=== PATIENT | male | born 1945 | race Caucasian/White ===

== ENCOUNTER 2017-04-25 08:00 | Day surgery (SDC) | payer MEDICARE, BC ==
[~2017-04-25 08:00] MED LIST: Bupivacaine 0.5% 50 ML MDV ONE; Lidocaine 1% with EPINEPHrine 1:100,000 50 ML MDV ONE; Midazolam 1 MG/ML 2 ML SDV ONE; Propofol 200 MG/20 ML SDV ONE; fentaNYL 100 MCG/2 ML SDV ONE
[2017-04-25] MEDS ORDERED: Dextrose 5%-Lactated Ringers 1,000 ML IV SCH (08:30)
[2017-04-25] MEDS ORDERED: ceFAZolin 2 GM in Sodium Chloride 0.9% 50 ML IV ONE (09:15)
[2017-04-25] MEDS ORDERED: Propofol 200 MG/20 ML SDV ONE (09:59)
--- NOTE | 2017-05-01 08:04 | OR ---
DATE OF PROCEDURE: 04/25/2017 PREOPERATIVE DIAGNOSIS: Indications for central venous access. POSTOPERATIVE DIAGNOSIS: Indications for central venous access. OPERATIVE PROCEDURE: Placement of Bard port via left subclavian vein approach ([id number]). ANESTHESIA: Local plus IV sedation. CANINE DEPUTY: Marjorie Rogers MS-3. INDICATION FOR PROCEDURE: This is a 71-year-old with stage IV marginal zone lymphoma, who is to be undergoing chemotherapy. To facilitate venous access, the patient is to undergo a Bard port placement. Potential risks including bleeding, infection, problems with the port becoming occluded, complications such as pneumothorax or vascular injury during the placement were reviewed, and the patient wishes to proceed. DETAILS OF PROCEDURE: The patient was taken to the operating room and placed in the supine position. After IV sedation was administered, the upper chest and neck areas were prepped and draped. The left subclavian area was then anesthetized with 1% lidocaine and left subclavian vein cannulated and the guidewire passed from there into the superior vena cava. Some additional local was injected and a transverse infraclavicular incision was made and carried down through the skin and subcutaneous tissue and through the pectoralis major fascia. A pocket behind the fascia was then constructed bluntly. A Bard port at that point had been assembled and flushed with heparinized saline. Port was placed in the pocket, and the catheter cut such that the tip would lie in the area of upper aspect of the right atrium. After this was measured and cut, the introducer and peel-away catheter were placed across the wire and the Bard port catheter thus deployed with the tip, once again, being in the upper right atrium. At that point, no further problems were noted. The incision was closed with 2 layers of 3-0 Vicryl stitch deep and a 4-0 Vicryl subcuticular stitch. The port was then accessed and teodoro blood back nicely and then was flushed once again with heparinized saline. Dressing was applied. The patient was taken to the recovery room in a satisfactory condition. There were no evident complications. Gerardo Rich MD /[id number]
== END 2017-04-25 11:42 | disposition home or self-care (01) ==
LOC: MERGE 08:00 → JP.SDS 08:00
PROVIDERS: ATTEND Surgery
DX: Z45.2 Encounter for adjustment and management of vascular access device (principal); Z88.8 Allergy status to other drugs, medicaments and biological substances
CPT/HCPCS: 36561; C1788; J0690; J1642; J2250; J2704; J3010; J7042; J7050

== ENCOUNTER 2017-06-26 07:45 | Day surgery (SDC) | payer MEDICARE, BC ==
[~2017-06-26 07:45] MED LIST changes: -Bupivacaine 0.5% 50 ML MDV ONE; +Bupivacaine 0.5%/EPINEPHrine 1:200,000 50 ML MDV ONE; -Lidocaine 1% with EPINEPHrine 1:100,000 50 ML MDV ONE; -Midazolam 1 MG/ML 2 ML SDV ONE; -Propofol 200 MG/20 ML SDV ONE; -fentaNYL 100 MCG/2 ML SDV ONE
[2017-06-26] MEDS ORDERED: fentaNYL 250 MCG/5 ML SDV ONE (08:09)
[2017-06-26] MEDS ORDERED: Acetaminophen 500 MG Tab PO ONE (08:15)
[2017-06-26] MEDS ORDERED: Gabapentin 300 MG Cap PO ONE (08:15)
[2017-06-26] MEDS ORDERED: Dextrose 5%-Lactated Ringers 1,000 ML IV SCH (08:30)
[2017-06-26] MEDS ORDERED: Meropenem 500 MG SDV ONE (09:25)
[2017-06-26] MEDS ORDERED: cefOXitin 2 GM in Sodium Chloride 0.9% 50 ML IV ONE (09:45)
[2017-06-26] MEDS ORDERED: Ropivacaine 45 ML, Dexamethasone 8 MG, EPINEPHrine 0.4 MG, Sodium Chloride 0.9% 32.6 ML NERVRT ONE ×4 (09:45)
[2017-06-26] MEDS ORDERED: Ketamine 500 MG/5 ML MDV IV ONE (09:45)
[2017-06-26] MEDS ORDERED: cefOXitin 2 GM in Sodium Chloride 0.9% 100 ML IV ONE (09:45)
[2017-06-26] MEDS ORDERED: Rocuronium 50 MG/5 ML Vial ONE (11:09)
[2017-06-26] MEDS ORDERED: Glycopyrrolate 0.2 MG/ML 5 ML MDV ONE (11:09)
[2017-06-26] MEDS ORDERED: Ondansetron 4 MG/2 ML SDV ONE (11:09)
[2017-06-26] MEDS ORDERED: Neostigmine Methylsulfate 1 MG/ML 5 ML Syringe ONE (11:09)
[2017-06-26] MEDS ORDERED: Dexamethasone 4 MG/ML SDV ONE (11:09)
[2017-06-26] MEDS ORDERED: Propofol 200 MG/20 ML SDV ONE (11:09)
[2017-06-26] MEDS ORDERED: Succinylcholine 200 MG/10 ML MDV ONE (11:09)
[2017-06-26] MEDS ORDERED: Sodium Chloride 0.9% 10 ML Syringe FLUSH ONE (14:25)
--- NOTE | 2017-06-29 13:50 | OR ---
DATE OF PROCEDURE: 06/26/2017 PREOPERATIVE DIAGNOSIS: Rule out abdominal wall involvement by recurrent follicular lymphoma. POSTOPERATIVE DIAGNOSES: 1. Rule out abdominal wall involvement by recurrent follicular lymphoma. 2. Advanced hepatic cirrhosis with marked portal hypertension. OPERATIVE PROCEDURES: Diagnostic laparoscopy with: 1. Collection of peritoneal fluid for analysis ([id number]). 2. Nikunj-Cut needle liver biopsy ([id number]). ANESTHESIA: General. ASSISTANTS: Kim Goodwin PA-C, and KALPANA Fry3. INDICATION FOR PROCEDURE: The patient was referred for staging of his lymphoma by means of obtaining some peritoneal fluid. Ultrasound last week showed, at that time, no safely obtainable collections by ultrasound. Given this, the patient is to undergo diagnostic laparoscopy as an outpatient at this point for obtaining some of the fluid, as well as other biopsies as indicated, such as liver biopsy or lymph node biopsies. Potential risks of the procedure including bleeding, infection, and injury to underlying viscera were all reviewed, and the patient wishes to proceed. DETAILS OF PROCEDURE: The patient was taken to the operating room and placed in the supine position. After general endotracheal anesthesia was induced and the abdomen was prepped and draped, a transverse incision was then made in the left lower quadrant, and the peritoneal cavity entered under direct vision with an Optiview trocar and inflated to 15 mmHg pressure of CO2. Laparoscope was then reinserted. No underlying trocar insertion site injuries were seen. Following this, bilateral transversus abdominis plane blocks were placed across the areas covering the mid and upper abdomen using the standard solution. The needles were visualized in the correct plane prior to injection of the anesthetic fluid. Following this, 5 mm trocars were placed, one on the right side and one on the left side, and then the abdomen examined. The patient was noted to have a striking degree of hepatic cirrhosis with there being a large amount of portal hypertension. The mesenteric veins were unusually quite large, and there was a large amount of collateral venous flow up around the falciform ligament into the umbilical area. The patient had, on the surface of the liver, some visible quite enlarged veins. The spleen was slightly enlarged, but not strikingly so. Apart from that, there was no significant lymphadenopathy seen in the mesentery or periaortic area. There was, at this point, only a fairly scant amount of fluid. In order to get the fluid for adequate specimens, which required around 20 mL, we needed to manipulate the patient somewhat, and the fluid was obtained predominantly behind the right lobe of the liver, but in general, there was a relatively scant amount of fluid present at this time. The fluid was then collected and sent for cytology, LDH, and flow cytometry, as well as cultures. At that point, no further problems were noted. Three Nikunj-Cut needle biopsies were obtained from the left lobe of the liver. This did result in some bleeding, which was controlled by means of high-level cautery, given the portal hypertension, and was also then reinforced with some fibrin sealant. The procedure was then concluded with withdrawal of the scope. The fascia at the 12 mm sites was closed with 0 Vicryl stitch and skin with 4-0 Vicryl skin stitch. The patient was taken to the recovery room in a satisfactory condition. The patient will be set up to see Dr. Jean-Baptiste of the Medical Oncology Department next week for development of a treatment plan at that time. Physician orthodontic technician assistant, Kim Goodwin, played an essential role in assisting in this case, helping to position the patient, retract structures as needed, as well as suturing and cutting sutures when indicated. Her presence improved patient safety and decreased the operative time. Gerardo Rich MD /[id number]
== END 2017-06-26 15:00 | disposition home or self-care (01) ==
LOC: JP.SDS 07:45
PROVIDERS: ATTEND Surgery
DX: K75.81 Nonalcoholic steatohepatitis (NASH) (principal); E83.19 Other disorders of iron metabolism; K76.0 Fatty (change of) liver, not elsewhere classified; K74.69 Other cirrhosis of liver; Z88.8 Allergy status to other drugs, medicaments and biological substances; Z79.899 Other long term (current) drug therapy
CPT/HCPCS: 47000; 49320; 87070; 87075; 87205; 88112; 88184; 88185; 88305; 88307; 88313; A9270; J0171; J0330; J0694; J1100; J1642; J2405; J2704; J2710; J2795; J3010; J7042; J7050; J2185